=== PATIENT | female | born 1990 | race Two or more races ===

== ENCOUNTER 2024-01-20 23:37 | Emergency (ER) | payer OTHER ==
[~2024-01-20] VITALS: Ht 175.3 cm; Wt 70.3 kg
[2024-01-21] MEDS ORDERED: FAMOTIDINE/PF 20 MG/2 ML VIAL IV PUSH STA (01:29)
[2024-01-21] MEDS ORDERED: ONDANSETRON HCL 2 MG/ML VIAL IV STA (01:29)
[2024-01-21] MEDS ORDERED: 0.9 % SODIUM CHLORIDE 1,000 ML IV ONE (01:30)
[2024-01-21 02:54] LABS: URINE APPEARANCE Clear; URINE BILIRRUBIN Negative (NEGATIVE); URINE BLOOD Trace; URINE COLOR Yellow; URINE GLUCOSE Negative (NEGATIVE); URINE LEUKOCYTE Small; URINE NITRATE Negative; URINE PROTEIN Negative (NEGATIVE); URINE UROBILINOGEN 0.2 E.U./dl
[2024-01-21 02:56] LABS: HEMATOCRIT 45.8 % (36.0-45.00); HEMOGLOBIN 15.7 g/dL (12.0-15.00); MEAN CELL VOLUME 95.9 fL (80.00-100.00); MEAN CORPUSCULAR HEMOGLOBIN 32.9 pg (27.00-32.0); MEAN CORPUSCULAR HGB CONC 34.3 g/dl (32.0-36.0); PLATELET COUNT 320 K/uL (150-450); RED BLOOD COUNT 4.78 M/uL (4.00-6.00); RED CELL DISTRIBUTION WIDTH 12.8 % (11.5-14.5)
[2024-01-21 02:58] LABS: URINE BACTERIA 1596.4 uL (0.0-1933); URINE EPITHELIAL CELLS 20.5 uL (0.0-38.8); URINE RBC 28.1 uL (0.0-20.8); URINE WBC 85.1 uL (0.0-23.2)
[2024-01-21 03:33] LABS: ALKALINE PHOSPHATASE 41 U/L (50-136); ALT/SGPT 18 U/L (12-78); AMYLASE 62 U/L (25-115); ANION GAP 14 (10.0-20.0); AST/SGOT 8 U/L (15-37); BLOOD UREA NITROGEN 8 mg/dL (7-18); BUN CREA RATIO 12 (7.0-25.0); CALCIUM 9.5 mg/dL (8.5-10.1); CARBON DIOXIDE 23 mEq/L (21-32); CHLORIDE 105 mmol/L (98-107); CREATININE SERUM 0.67 mg/dL (0.55-1.02); GFR 102.66; GLOBULINA 3.9 G/DL (2.4-3.5); GLUCOSE FASTING 111 mg/dL (65-100); LIPASE 20 U/L (13-75); OSMOLALITY SERUM 275 MOSM/KG (275-295); POTASSIUM 3.74 mEq/L (3.5-5.1); SODIUM 138 mmol/L (136-145); TOTAL PROTEIN 7.9 gm/dL (6.4-8.2)
[2024-01-21 03:35] LABS: HCG QUANTITATIVE < 1 mUI/mL (1-3)
[2024-01-21] MEDS ORDERED: PEPCID40 MG PO ×2 (04:13→04:14)
[2024-01-21] MEDS ORDERED: ONDANSETRON ODT8 MG PO ×2 (04:13→04:14)
[2024-01-21] MEDS ORDERED: CEPHALEXIN500 MG PO (04:14)
== END 2024-01-21 04:22 ==
LOC: ER 23:37
PROVIDERS: General Practice
DX: R30.0 Dysuria (principal); R11.10 Vomiting, unspecified; N39.0 Urinary tract infection, site not specified
CPT/HCPCS: 36415; 96365; 96366; 99282; J2405; J3490; J7030